=== PATIENT | male | born 1960 | race Caucasian/White ===

== ENCOUNTER 2024-05-25 20:09 | Emergency (ER) | payer OTHER ==
[~2024-05-25] VITALS: Ht 188 cm; Wt 95.3 kg
[2024-05-25] MEDS ORDERED: METHYLPREDNISOLONE SOD SUCC 125 MG VIAL ONE (20:14)
[2024-05-25] MEDS ORDERED: IPRATROPIUM/ALBUTEROL SULFATE 3 ML AMPUL.NEB IH ONE (20:14)
[2024-05-25] MEDS ORDERED: MAGNESIUM SULFATE 50% 1,000 MG/2 ML VIAL ONE (20:24)
[2024-05-25] MEDS ORDERED: IPRATROPIUM/ALBUTEROL SULFATE 3 ML AMPUL.NEB IH SCH (20:30)
[2024-05-25] MEDS ORDERED: CEFTRIAXONE SODIUM 1,000 MG VIAL IV ONE (20:30)
[2024-05-25] MEDS ORDERED: METHYLPREDNISOLONE SOD SUCC 125 MG VIAL IV ONE (20:30)
[2024-05-25] MEDS ORDERED: MAGNESIUM SULFATE IN WATER 2 GM/50 ML PIGGYBAG IV ONE (20:30)
[2024-05-25] MEDS ORDERED: 0.9 % SODIUM CHLORIDE 1,000 ML IV ONE (20:30)
[2024-05-25 20:45] LABS: HEMATOCRIT 43.9 % (39.0-48.0); HEMOGLOBIN 15.1 g/dL (13-16.00); MEAN CELL VOLUME 103.4 fL (80.0-100.00); MEAN CORPUSCULAR HEMOGLOBIN 35.5 pg (27.00-32.0); MEAN CORPUSCULAR HGB CONC 34.4 g/dl (32.0-36.0); PLATELET COUNT 194 K/uL (150-450); RED BLOOD COUNT 4.24 M/uL (4.00-6.00); RED CELL DISTRIBUTION WIDTH 15.1 % (11.5-14.5)
[2024-05-25 21:20] LABS: ALBUMIN 3.4 gm/dL (3.4-5.0); BILIRUBIN TOTAL 0.63 mg/dL (0.3-1.2); CALCIUM 8.7 mg/dL (8.5-10.1); CREATININE SERUM 1.02 mg/dL (0.70-1.30); GFR 73.53; GLOBULINA 3.4 G/DL (2.4-3.5); POTASSIUM 3.94 mEq/L (3.5-5.1); TOTAL PROTEIN 6.8 gm/dL (6.4-8.2)
[2024-05-25] MEDS ORDERED: MEDROLPACK PO (22:01)
[2024-05-25] MEDS ORDERED: LEVALBUTER0.63 MG/3 IH (22:01)
[2024-05-25] MEDS ORDERED: PROAIR RESPICL90 MCG IH (22:01)
[2024-05-25] MEDS ORDERED: ZITHROMAX500 MG PO (22:01)
[2024-05-25 22:42] LABS: ABG PH 7.413 (7.35-7.45); ABG PO2 56.7 mmHg (80-100); ABG pCO2 36.5 mmHg (35-45); BASE EXCESS -1.3 mmol/l; BICARBONATE 22.8 mmol/l (23-25); SaO2 89.4 %; Tco2 23.9 mmol/l
[2024-05-25 22:43] LABS: allen test SATISFACTORY; o2 21 %; puncture site RADIAL RIGHT
== END 2024-05-25 22:54 | disposition home or self-care (01) ==
LOC: ER 20:11
PROVIDERS: General Practice
DX: J44.1 Chronic obstructive pulmonary disease with (acute) exacerbation (principal); J45.901 Unspecified asthma with (acute) exacerbation; I10 Essential (primary) hypertension; Z20.822 Contact with and (suspected) exposure to COVID-19
CPT/HCPCS: 36415; 71046; 82803; 94640; 96365; 96366; 99284; J0696; J3475; J3490; J7030